=== PATIENT | female | born 1955 | race Caucasian/White ===

== ENCOUNTER 2016-12-21 16:24 | Emergency (ER) | payer BC ==
[~2016-12-21] VITALS: Ht 167.6 cm; Wt 63.5 kg
[~2016-12-21 16:24] MED LIST: TRAM50TA2 PO
[2016-12-21 18:00] VITALS: BP 114/67
[2016-12-21] MEDS ORDERED: LIDOCAINE 1% HCL (LOCAL ANESTH.) INJ 20ML MDV ONE (19:53)
[2016-12-21] MEDS ORDERED: LIDOCAINE 1% HCL (LOCAL ANESTH.) INJ 20ML MDV IN ONE (20:30)
== END 2016-12-21 20:55 | disposition home or self-care (01) ==
LOC: ER 16:29
DX: L02.811 Cutaneous abscess of head [any part, except face] (principal); M19.90 Unspecified osteoarthritis, unspecified site; Z86.73 Personal history of transient ischemic attack (TIA), and cerebral infarction without residual deficits; Z88.8 Allergy status to other drugs, medicaments and biological substances
CPT/HCPCS: 10060; 87205; 99283; J2001